=== PATIENT | female | born 2000 | race African-American/Black ===

== ENCOUNTER 2019-10-14 23:34 | Inpatient (IN) ==
[2019-10-15 00:23] LABS: Apearance,Urine Slightly Hazy (Clear); Bacteria,Urine Occasional /HPF (Few); Bilirubin,Urine Negative (Negative); Blood, Urine Negative (Negative); Glucose,Urine (UA) Negative (Negative); Ketones,Urine Negative (Negative); Mucus,Urine Occasional /LPF (Occasional); Nitrite,Urine Negative (Negative); Protein,Urine Negative; RBC,Urine <1 /HPF (0-4); Squamous Epithelial Cell,Urine Occasional /HPF (0-10); Urine Color Yellow (Yellow); Urine Specific Gravity 1.021 (1.001-1.035); WBC,Urine 1 /HPF (0-6)
[2019-10-15] MEDS ORDERED: BUTORPHANOL 2 MG/ML VIAL IV ONE (00:26)
[2019-10-15] MEDS ORDERED: AMPICILLIN INJ 2,000 MG in SODIUM CHLORIDE 0.9% 100 ML IV ONE (00:26)
[2019-10-15 00:47] LABS: Basophils % 0.2 % (0.0-0.8); Eosinophils # 0.1 10*3/uL (0.0-0.87); Hemoglobin 10.7 GM/DL (12.0-16.0); Immature Granulocytes % 1.7 %; Immature Granulocytes Absolute 0.15 #; Lymphocytes # 1.8 10*3/uL (1.4-4.0); Lymphocytes % 20.7 % (21.3-54.2); Mean Corpuscular HGB Conc 31.5 GM/DL (32-36); Mean Corpuscular Volume 92.1 FL (87-102); Mean Platelet Volume 10.7 FL (9.6-12.0); Monocytes % 8.4 % (1.7-12.7); Platelet Count 209 T/CUMM (130-400); Red Blood Count 3.69 MC/CUMM (3.8-5.5); Red Cell Distribution Width 12.8 % (9.3-17.3); White Blood Count 8.8 T/CUMM (4-12)
[2019-10-15] MEDS: LACTATED RINGERS 1,000 ML IV SCH ×2 (00:52→08:45)
[2019-10-15] MEDS ORDERED: ONDANSETRON 4 MG/2 ML VIAL ONE (00:52)
[2019-10-15 01:02] LABS: Alanine Aminotransferase 15 U/L (13-56); Albumin 2.7 G/DL (3.4-5.0); Alkaline Phosphatase 278 U/L (45-117); Aspartate Amino Transferase 13 U/L (0-37); Bilirubin,Total < 0.39 MG/DL (0.2-1.0); Blood Urea Nitrogen 9 MG/DL (7-18); Calcium 9.2 MG/DL (8.5-10.1); Estimated Glom Filtration Rate 143 ML/MIN; Glucose 96 MG/DL (74-106); Osmolality,Calculated 268.1 MOS/KG (273-304)
[2019-10-15] MEDS: ONDANSETRON 4 MG/2 ML VIAL IV PRN ×3 (01:16→17:12)
[2019-10-15 01:22] LABS: Hepatitis B Surface Ag Quant < 0.10 Index; Hepatitis B Surface Ag Result Negative (Negative); Rubella Antibody IgG 98.3 IU/ML
[2019-10-15 02:24] LABS: HIV Antigen/Antibody Result Nonreactive (Nonreactive)
[2019-10-15] MEDS: AMPICILLIN INJ 1,000 MG in SODIUM CHLORIDE 0.9% 100 ML IV SCH ×4 (06:15→22:48)
[2019-10-15] MEDS ORDERED: BUTORPHANOL 2 MG/ML VIAL IV PRN (06:16)
[2019-10-15] MEDS ORDERED: OXYTOCIN/LR 30 UNIT/1,000 ML BAG IV ONE (07:28)
[2019-10-15] MEDS ORDERED: OXYTOCIN/LR 20 UNIT/1,000 ML BAG IV SCH (07:30)
[2019-10-15] MEDS: BUTORPHANOL 2 MG/ML VIAL IV PRN ×3 (09:08→15:10)
[2019-10-15] MEDS ORDERED: miSOPROStoL 200 MCG TABLET ONE (15:30)
[2019-10-15] MEDS ORDERED: TRANEXAMIC ACID 1,000 MG/10 ML VIAL ONE (15:31)
[2019-10-15] MEDS ORDERED: METHYLERGONOVINE 0.2 MG/1 ML AMP ONE (15:31)
[2019-10-15] MEDS ORDERED: CARBOPROST TROMETHAMINE 250 MCG/ML AMP IM ONE (15:31)
[2019-10-15] MEDS ORDERED: LIDOCAINE 1% 50 ML VIAL ONE (15:32)
[2019-10-15] MEDS ORDERED: LANOLIN 50% CREAM 0.3 OZ TUBE TOP PRN (18:27)
[2019-10-15] MEDS ORDERED: RHO(D) IMMUNE GLOBULIN 300 MCG SYRINGE IM ONE (18:27)
[2019-10-15] MEDS ORDERED: BISACODYL 10 MG SUPP RECTAL PRN (18:27)
[2019-10-15] MEDS ORDERED: OXYTOCIN/LR 20 UNIT/1,000 ML BAG IV ONE (18:27)
[2019-10-15] MEDS ORDERED: MEASLES/MUMPS/RUBELLA VACCINE 0.5 ML VIAL SUBCUT ONE (18:27)
[2019-10-15] MEDS ORDERED: WITCH HAZEL PADS 100/JAR TOP PRN (18:27)
[2019-10-15] MEDS ORDERED: BENZOCAINE 20%/MENTHOL 0.5% SPRAY 56 GM CAN TOP PRN (18:27)
[2019-10-15] MEDS ORDERED: HYDROCORTISONE 2.5% RECTAL CREAM 30 GM TUBE TOP PRN (18:27)
[2019-10-15] MEDS ORDERED: oxyCODONE/ACETAMINOPHEN 5-325 MG TABLET PO PRN (18:27)
[2019-10-15] MEDS ORDERED: ACETAMINOPHEN 325 MG TABLET PO PRN (18:27)
[2019-10-15] MEDS ORDERED: DIPH/TET/ACEL PERT BOOSTER VACCINE 0.5 ML VIAL IM ONE (18:27)
[2019-10-15] MEDS ORDERED: ONDANSETRON 4 MG/2 ML VIAL IV PRN (18:27)
[2019-10-15 18:30] LABS: Cord Arterial Blood HCO3 16.9 MMOL/L
[2019-10-15 18:33] LABS: Cord Venous Blood HCO3 17.9 MMOL/L; Cord Venous Blood PCO2 48.6 MMHG; Cord Venous Blood PO2 25.5
[2019-10-15] MEDS: IBUPROFEN 800 MG TABLET PO PRN (20:47)
[2019-10-15] MEDS: DOCUSATE SODIUM 100 MG CAPSULE PO SCH (22:39)
[2019-10-16 06:40] LABS: Basophils % 0.2 % (0.0-0.8); Eosinophils % 0.3 % (0.00-10.9); Hematocrit 25.8 VOL% (35.7-47.0); Hemoglobin 8.5 GM/DL (12.0-16.0); Immature Granulocytes % 0.9 %; Immature Granulocytes Absolute 0.11 #; Lymphocytes # 1.9 10*3/uL (1.4-4.0); Lymphocytes % 15.5 % (21.3-54.2); Mean Corpuscular HGB Conc 32.9 GM/DL (32-36); Mean Corpuscular Volume 89.6 FL (87-102); Mean Platelet Volume 10.3 FL (9.6-12.0); Neutrophils % 74.1 % (38.7-73.9); Platelet Count 180 T/CUMM (130-400); Red Blood Count 2.88 MC/CUMM (3.8-5.5); Red Cell Distribution Width 12.8 % (9.3-17.3); White Blood Count 12.1 T/CUMM (4-12)
[2019-10-16] MEDS: FERROUS SULFATE 325 MG TABLET PO SCH ×2 (08:26→20:47)
[2019-10-16] MEDS: IBUPROFEN 800 MG TABLET PO PRN ×2 (08:29→19:39)
[2019-10-16] MEDS: DOCUSATE SODIUM 100 MG CAPSULE PO SCH ×2 (08:32→20:47)
[2019-10-16] MEDS: oxyCODONE/ACETAMINOPHEN 5-325 MG TABLET PO PRN ×2 (09:58→19:39)
[2019-10-16] MEDS: diphenhydrAMINE CAP 25 MG CAPSULE PO PRN ×2 (17:03→23:09)
[2019-10-17] MEDS: oxyCODONE/ACETAMINOPHEN 5-325 MG TABLET PO PRN (02:02)
[2019-10-17] MEDS: diphenhydrAMINE CAP 25 MG CAPSULE PO PRN (08:06)
[2019-10-17] MEDS: DOCUSATE SODIUM 100 MG CAPSULE PO SCH (08:58)
[2019-10-17] MEDS: IBUPROFEN 800 MG TABLET PO PRN (08:58)
[2019-10-17] MEDS: FERROUS SULFATE 325 MG TABLET PO SCH (08:58)
[2019-10-17 11:15] VITALS: BP 106/65
[2019-10-17] MEDS ORDERED: KETOROLAC 15 MG/1 ML VIAL IM ONE (14:02)
== END 2019-10-17 16:01 | disposition home or self-care (01) | DRG 560 ==
LOC: N.LDOUT 23:34 → N.LD 23:36 → N.OB 10-16 07:19
PROVIDERS: ADMIT Obstetrics & Gynecology; ATTEND Obstetrics & Gynecology